=== PATIENT | female | born 1955 | race Caucasian/White ===

== ENCOUNTER → 2016-07-12 | Outpatient (CLI) | payer BC ==
[~2016-07-12] MED LIST: ADVIN10/60 INH; CALC-214; CETI10TA84 PO; CHOL1CAP57 PO; EVENCAP6 PO; FLV1 PO; GADAVIST IV PRN; MONT1TAB3 PO; TAMO20TA47 PO; TRIA3AER NAE
--- NOTE | 2016-07-13 12:47 | MAMMOGRAPHY REPORT ---
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 She presents for breast MRI surveillance. COMPARISON: Bilateral breast MRI dated 07/01/2014, 01/14/2014, 10/09/2013, right diagnostic mammogra m dated 12/12/2012, bilateral screening mammograms dated 11/23/2012, 11/17/2011 11/09/2010, 11/12/19 10. TECHNIQUE: Using a 1.5 Rema magnet and dedicated breast coil, multisequence axial images were obtai pinky through the breasts. After uneventful IV administration of 5.5 mL of Gadavist, dynamic multiph ase contrast-enhanced axial images, and sagittal postcontrast were obtained. Temporal subtraction a xial images and 3-D MIP images are provided. Everything was then reviewed on a 3-D workstation, AEG IS. FINDINGS: There is evidence of prior bilateral reduction mammoplasty. There is minimal background p arenchymal enhancement of the breasts, which has been progressively decreasing comparing to serial p rior breast MRIs dating back to 2013, which was performed in the postoperative period. There is no evidence of a suspicious enhancing mass, enhancement, unexpected architectural distortion or suspici ous kinetics bilaterally. No new focal skin thickening or nipple retraction. No suspicious axillar y lymphadenopathy bilaterally. IMPRESSION: ACR BI-RADS CATEGORY 2: BENIGN 1. Stable MRI, without MRI evidence of malignancy in the breasts. 2. Continuation of annual breast MRI for surveillance as well as annual screening mammography is re commended. It should be noted that mammography is currently the gold standard for reducing breast c ancer mortality. The patient will receive written notification of the results. Karen Brice M.D. ay/:07/12/2016 22:08:59 [employer]stitching Machine Operator: glass cleaner, [facility] letter sent: Normal 1/2 BI-RADS Code: ACR BI-RADS Category 2: Benign
== END | disposition home or self-care (01) ==
LOC: C.MRI 12:44
PROVIDERS: ATTEND Nurse Practitioner
DX: D05.11 Intraductal carcinoma in situ of right breast (principal)